=== PATIENT | male | born 1950 | race Caucasian/White ===

== ENCOUNTER → 2017-03-18 | Outpatient (CLI) | payer MEDICARE, BC ==
[2014-09-12 15:22] VITALS: BP 143/90
[~2017-03-18] MED LIST: ADVIL200 MG PO; NORCO 325 MG-101 TA1 PO; PARAFON FORTE500 MG PO; PROSCAR PO
[2017-03-18 09:04] LABS: EOS # 0.2 (0.04-0.40); EOS % 3.4 % (0.0-4.0); HEMATOCRIT 51.4 % (42.0-52.0); HEMOGLOBIN 17.3 g/dL (13.5-18.0); LYMPH# 1.5 (1.50-4.00); MEAN CELL VOLUME 89 fl (78-100); MEAN CORPUSCULAR HEMOGLOBIN 30 pg (27-31); MEAN CORPUSCULAR HGB CONC 34 g/dL (33-37); MEAN PLATELET VOLUME 8.8 fl (7.4-10.4); MONO # 0.5 (0.20-0.80); NEU # 3.9 (1.40-6.50); PLATELET COUNT 200 K/mm3 (130-400); RED BLOOD COUNT 5.76 M/mm3 (4.20-5.60); RED CELL DISTRIBUTION WIDTH 13.3 % (11.5-14.5); WHITE BLOOD COUNT 6.2 K/mm3 (4.8-10.8)
[2017-03-18 09:18] LABS: ALBUMIN 4.1 g/dL (3.5-5.0); CALCIUM 8.9 mg/dL (8.4-10.2); POTASSIUM 4.4 mmol/L (3.6-5.0); TOTAL BILIRUBIN 0.7 mg/dL (0.2-1.3); TOTAL PROTEIN 7.1 g/dL (6.3-8.2)
[2017-03-18 10:21] LABS: ERYTHROCYTE SEDIMENTATION RATE 5 mm/hr (0-20)
[2017-03-19 00:10] LABS: TESTOSTERONE 639 ng/dL (221-716)
== END ==
LOC: LAB 08:27
PROVIDERS: Internal Medicine
DX: E78.5 Hyperlipidemia, unspecified (principal); Z12.5 Encounter for screening for malignant neoplasm of prostate; G43.909 Migraine, unspecified, not intractable, without status migrainosus; G89.29 Other chronic pain; M54.12 Radiculopathy, cervical region; N52.9 Male erectile dysfunction, unspecified

== ENCOUNTER → 2017-03-21 | Outpatient (CLI) | payer MEDICARE, BC ==
[2014-09-12 15:22] VITALS: BP 143/90
== END ==
LOC: LAB 09:27
DX: Z12.11 Encounter for screening for malignant neoplasm of colon (principal)

== ENCOUNTER → 2017-03-26 | Outpatient (CLI) | payer MEDICARE, BC ==
[~2017-03-26] VITALS: Ht 154.9 cm; Wt 93.2 kg
[2017-03-26 09:49] VITALS: BP 150/88
== END ==
LOC: AMSURD 09:21
DX: I49.3 Ventricular premature depolarization (principal)

== ENCOUNTER → 2018-05-09 | Outpatient (CLI) | payer MEDICARE, BC ==
[2017-03-26 09:49] VITALS: BP 150/88
[2018-05-09 10:27] LABS: EOS # 0.2 (0.04-0.40); EOS % 2.6 % (0.0-4.0); HEMATOCRIT 48.2 % (42.0-52.0); HEMOGLOBIN 16.5 g/dL (13.5-18.0); LYMPH# 1.4 (1.50-4.00); MEAN CELL VOLUME 88 fl (78-100); MEAN CORPUSCULAR HEMOGLOBIN 30 pg (27-31); MEAN CORPUSCULAR HGB CONC 34 g/dL (33-37); MEAN PLATELET VOLUME 9.1 fl (7.4-10.4); MONO # 0.5 (0.20-0.80); PLATELET COUNT 214 K/mm3 (130-400); RED BLOOD COUNT 5.47 M/mm3 (4.20-5.60); RED CELL DISTRIBUTION WIDTH 12.6 % (11.5-14.5); WHITE BLOOD COUNT 6.1 K/mm3 (4.8-10.8)
[2018-05-09 10:34] LABS: ALBUMIN 4.5 g/dL (3.5-5.0); CALCIUM 9.3 mg/dL (8.4-10.2); POTASSIUM 4.4 mmol/L (3.6-5.0); TOTAL BILIRUBIN 0.8 mg/dL (0.2-1.3); TOTAL PROTEIN 7.4 g/dL (6.3-8.2)
[2018-05-09 10:46] LABS: PH-URINE 7.5 (5.0 - 8.0); URINE APPEARANCE CLEAR; URINE BILIRUBIN NEGATIVE (NEGATIVE); URINE BLOOD TRACE (NEGATIVE); URINE COLOR YELLOW; URINE GLUCOSE NEGATIVE (NEGATIVE); URINE KETONE NEGATIVE (NEGATIVE); URINE LEUKOCYTE ESTERASE NEGATIVE (NEGATIVE); URINE NITRATE NEGATIVE (NEGATIVE); URINE PROTEIN(semi-quant) NEGATIVE (NEGATIVE); URINE UROBILINOGEN NORMAL (NORMAL); URINE WBC 0-1 /hpf (0-3)
[2018-05-09 12:00] LABS: ERYTHROCYTE SEDIMENTATION RATE 8 mm/hr (0-20)
== END ==
LOC: LAB 09:53
PROVIDERS: Internal Medicine
DX: Z12.11 Encounter for screening for malignant neoplasm of colon (principal); Z12.5 Encounter for screening for malignant neoplasm of prostate; G43.909 Migraine, unspecified, not intractable, without status migrainosus; E78.5 Hyperlipidemia, unspecified; E03.8 Other specified hypothyroidism; M54.12 Radiculopathy, cervical region; R35.1 Nocturia

== ENCOUNTER → 2018-05-12 | Outpatient (CLI) | payer MEDICARE, BC ==
[2017-03-26 09:49] VITALS: BP 150/88
== END ==
LOC: LAB 10:29
DX: Z12.11 Encounter for screening for malignant neoplasm of colon (principal); G43.909 Migraine, unspecified, not intractable, without status migrainosus

== ENCOUNTER → 2018-06-09 | Outpatient (CLI) | payer MEDICARE, BC ==
[2017-03-26 09:49] VITALS: BP 150/88
[2018-06-09 10:12] LABS: URINE APPEARANCE CLEAR; URINE BILIRUBIN NEGATIVE (NEGATIVE); URINE COLOR YELLOW; URINE GLUCOSE NEGATIVE (NEGATIVE); URINE KETONE NEGATIVE (NEGATIVE); URINE PROTEIN(semi-quant) TRACE mg/dL (NEGATIVE); URINE UROBILINOGEN NORMAL (NORMAL)
[2018-06-09 10:13] LABS: URINE BLOOD NEGATIVE (NEGATIVE); URINE LEUKOCYTE ESTERASE NEGATIVE (NEGATIVE); URINE MUCUS PRESENT (NOT PRESENT); URINE NITRATE NEGATIVE (NEGATIVE); URINE WBC 0-1 /hpf (0-3)
== END ==
LOC: LAB 08:52
PROVIDERS: Internal Medicine
DX: R31.9 Hematuria, unspecified (principal)

== ENCOUNTER → 2018-07-07 | Outpatient (CLI) | payer MEDICARE, BC ==
[2017-03-26 09:49] VITALS: BP 150/88
== END ==
LOC: RAD 09:50
DX: M47.814 Spondylosis without myelopathy or radiculopathy, thoracic region (principal); J40 Bronchitis, not specified as acute or chronic

== ENCOUNTER → 2020-01-07 | Outpatient (CLI) | payer MEDICARE, BC ==
[2017-03-26 09:49] VITALS: BP 150/88
[2020-01-07 10:47] LABS: EOS # 0.1 (0.04-0.40); EOS % 2.6 % (0.0-4.0); HEMATOCRIT 49.3 % (42.0-52.0); HEMOGLOBIN 16.8 g/dL (13.5-18.0); LYMPH# 1.2 (1.50-4.00); MEAN CELL VOLUME 87 fl (78-100); MEAN CORPUSCULAR HEMOGLOBIN 30 pg (27-31); MEAN CORPUSCULAR HGB CONC 34 g/dL (33-37); MEAN PLATELET VOLUME 8.8 fl (7.4-10.4); MONO # 0.4 (0.20-0.80); NEU # 3.6 (1.40-6.50); PLATELET COUNT 181 K/mm3 (130-400); RED BLOOD COUNT 5.66 M/mm3 (4.20-5.60); RED CELL DISTRIBUTION WIDTH 12.9 % (11.5-14.5); WHITE BLOOD COUNT 5.4 K/mm3 (4.8-10.8)
[2020-01-07 11:03] LABS: ALBUMIN 4.2 g/dL (3.4-4.8); POTASSIUM 4.5 mmol/L (3.5-5.1)
[2020-01-07 11:05] LABS: TOTAL PROTEIN 6.7 g/dL (6.2-8.1)
[2020-01-07 11:07] LABS: TOTAL BILIRUBIN 0.6 mg/dL (0.2-1.2)
[2020-01-07 11:12] LABS: MAGNESIUM 1.96 mg/dL (1.60-2.60)
[2020-01-07 11:40] LABS: ERYTHROCYTE SEDIMENTATION RATE 3 mm/hr (0-20)
== END ==
LOC: LAB 10:11
PROVIDERS: Internal Medicine
DX: Z12.5 Encounter for screening for malignant neoplasm of prostate (principal); G43.909 Migraine, unspecified, not intractable, without status migrainosus; E78.5 Hyperlipidemia, unspecified; K90.9 Intestinal malabsorption, unspecified; G44.89 Other headache syndrome

== ENCOUNTER → 2020-11-10 | Outpatient (CLI) | payer MEDICARE, BC ==
[2020-11-10 12:40] LABS: BASO # 0.03 (0.02-0.10); EOS # 0.15 (0.04-0.40); EOS % 2.4 % (0.0-4.0); HEMATOCRIT 50.4 % (42.0-52.0); LYMPH# 1.31 (1.50-4.00); MEAN CELL VOLUME 90 fl (78-100); MEAN CORPUSCULAR HEMOGLOBIN 30 pg (27-31); MEAN CORPUSCULAR HGB CONC 34 g/dL (33-37); MEAN PLATELET VOLUME 8.8 fl (7.4-10.4); MONO # 0.46 (0.20-0.80); NEU # 4.24 (1.40-6.50); PLATELET COUNT 205 K/mm3 (130-400); RED BLOOD COUNT 5.61 M/mm3 (4.20-5.60); RED CELL DISTRIBUTION WIDTH 12.4 % (11.5-14.5); WHITE BLOOD COUNT 6.2 K/mm3 (4.8-10.8)
[2020-11-10 13:24] LABS: ALBUMIN 4.3 g/dL (3.4-4.8); POTASSIUM 5.3 mmol/L (3.5-5.1)
[2020-11-10 13:25] LABS: CALCIUM 9.6 mg/dL (8.3-10.5)
[2020-11-10 13:27] LABS: TOTAL PROTEIN 7.3 g/dL (6.2-8.1)
[2020-11-10 13:29] LABS: TOTAL BILIRUBIN 0.6 mg/dL (0.2-1.2)
[2020-11-10 13:31] LABS: D-DIMER 1.94 mg/L FEU (0.15-0.50)
== END ==
LOC: LAB 11:59
PROVIDERS: Internal Medicine
DX: E78.5 Hyperlipidemia, unspecified (principal); K90.9 Intestinal malabsorption, unspecified; R06.00 Dyspnea, unspecified

== ENCOUNTER → 2020-11-11 | Outpatient (CLI) | payer MEDICARE, BC | LOC: RAD 07:55 | DX: I71.4 Abdominal aortic aneurysm, without rupture (principal); R79.1 Abnormal coagulation profile; R91.8 Other nonspecific abnormal finding of lung field | CPT/HCPCS: Q9967 ==

== ENCOUNTER → 2020-11-16 | Outpatient (CLI) | payer MEDICARE, BC | LOC: VAS 12:46 → RAD 13:00 | DX: R06.00 Dyspnea, unspecified (principal) ==

== ENCOUNTER 2020-11-17 20:59 | Emergency (ER) | payer MEDICARE, BC ==
[2020-11-17 22:13] LABS: BASO # 0.03 (0.02-0.10); EOS # 0.11 (0.04-0.40); EOS % 1.9 % (0.0-4.0); HEMATOCRIT 45.9 % (42.0-52.0); HEMOGLOBIN 15.8 g/dL (13.5-18.0); LYMPH# 1.18 (1.50-4.00); MEAN CELL VOLUME 90 fl (78-100); MEAN CORPUSCULAR HEMOGLOBIN 31 pg (27-31); MEAN CORPUSCULAR HGB CONC 34 g/dL (33-37); MEAN PLATELET VOLUME 8.8 fl (7.4-10.4); MONO # 0.38 (0.20-0.80); PLATELET COUNT 175 K/mm3 (130-400); RED BLOOD COUNT 5.13 M/mm3 (4.20-5.60); RED CELL DISTRIBUTION WIDTH 12.1 % (11.5-14.5); WHITE BLOOD COUNT 5.8 K/mm3 (4.8-10.8)
[2020-11-17 22:20] LABS: POTASSIUM 4.3 mmol/L (3.5-5.1); SODIUM 137 mmol/L (136-145)
[2020-11-17 22:21] LABS: CALCIUM 9.1 mg/dL (8.3-10.5)
[2020-11-17 22:22] LABS: GLUCOSE 101 mg/dL (75-110)
[2020-11-17 22:23] LABS: TOTAL PROTEIN 6.8 g/dL (6.2-8.1)
[2020-11-17 22:24] LABS: CARBON DIOXIDE 23 mmol/L (23-31); TOTAL BILIRUBIN 0.7 mg/dL (0.2-1.2)
[2020-11-17 22:28] LABS: AST-SGOT 11 U/L (5-34)
[2020-11-17 22:29] LABS: ALT/SGPT 15 U/L (0-55)
[2020-11-17 22:37] LABS: TROPONIN-I < 0.03 ng/mL (<0.030)
[2020-11-17 23:11] LABS: URINE WBC 0 /hpf (0-3)
[2020-11-17 23:38] LABS: URINE APPEARANCE CLEAR; URINE BILIRUBIN NEGATIVE (NEGATIVE); URINE BLOOD NEGATIVE (NEGATIVE); URINE COLOR YELLOW; URINE GLUCOSE NEGATIVE (NEGATIVE); URINE KETONE NEGATIVE (NEGATIVE); URINE LEUKOCYTE ESTERASE NEGATIVE (NEGATIVE); URINE NITRATE NEGATIVE (NEGATIVE); URINE PROTEIN(semi-quant) NEGATIVE (NEGATIVE); URINE UROBILINOGEN NORMAL (NORMAL)
[2020-11-18 00:44] VITALS: BP 126/81
== END 2020-11-18 00:45 | disposition left against medical advice (07) ==
LOC: ED 20:59
PROVIDERS: Nurse Practitioner Family
DX: R07.89 Other chest pain (principal); I16.0 Hypertensive urgency; T73.3XXA Exhaustion due to excessive exertion, initial encounter; F43.9 Reaction to severe stress, unspecified; J44.9 Chronic obstructive pulmonary disease, unspecified; G89.29 Other chronic pain; M54.9 Dorsalgia, unspecified; F17.210 Nicotine dependence, cigarettes, uncomplicated; Z79.1 Long term (current) use of non-steroidal anti-inflammatories (NSAID)
CPT/HCPCS: J2405; J7030

== ENCOUNTER → 2020-11-25 | Outpatient (CLI) | payer MEDICARE, BC | LOC: CARDLAB 11-17 16:02 → CARDREHAB 07:55 | DX: R06.00 Dyspnea, unspecified (principal) | CPT/HCPCS: A9500 ==

== ENCOUNTER → 2020-12-06 | Outpatient (CLI) | payer MEDICARE, BC ==
[2020-12-06 11:09] LABS: POTASSIUM 4.2 mmol/L (3.5-5.1)
[2020-12-07 07:35] LABS: FACTOR V LEIDEN MUTATION B Negative (Negative)
== END ==
LOC: RAD 09:37
PROVIDERS: Internal Medicine
DX: I71.4 Abdominal aortic aneurysm, without rupture (principal); R06.00 Dyspnea, unspecified; R79.1 Abnormal coagulation profile; I10 Essential (primary) hypertension; Z83.2 Family history of diseases of the blood and blood-forming organs and certain disorders involving the immune mechanism
CPT/HCPCS: Q9967

== ENCOUNTER → 2021-01-26 | Outpatient (CLI) | payer MEDICARE, BC ==
[2021-01-26 08:18] LABS: BASO # 0.03 K/mm3 (0.02-0.10); EOS % 3.6 % (0.0-4.0); HEMATOCRIT 47.1 % (42.0-52.0); HEMOGLOBIN 15.9 g/dL (13.5-18.0); LYMPH# 1.71 K/mm3 (1.50-4.00); MEAN CELL VOLUME 90 fl (78-100); MEAN CORPUSCULAR HEMOGLOBIN 30 pg (27-31); MEAN CORPUSCULAR HGB CONC 34 g/dL (33-37); MEAN PLATELET VOLUME 8.5 fl (7.4-10.4); MONO # 0.42 K/mm3 (0.20-0.80); NEU # 3.21 K/mm3 (1.40-6.50); PLATELET COUNT 177 K/mm3 (130-400); RED BLOOD COUNT 5.25 M/mm3 (4.20-5.60); RED CELL DISTRIBUTION WIDTH 12.5 % (11.5-14.5); WHITE BLOOD COUNT 5.6 K/mm3 (4.8-10.8)
[2021-01-26 08:29] LABS: POTASSIUM 4.3 mmol/L (3.5-5.1)
[2021-01-26 08:30] LABS: CALCIUM 8.7 mg/dL (8.3-10.5)
[2021-01-26 08:38] LABS: PROTHROMBIN TIME 10.9 SECONDS (9.0-12.0)
== END ==
LOC: LAB 08:04
DX: I71.4 Abdominal aortic aneurysm, without rupture (principal)

== ENCOUNTER → 2021-01-27 | Outpatient (CLI) | payer MEDICARE, BC | LOC: LAB 07:40 | DX: I71.4 Abdominal aortic aneurysm, without rupture (principal); Z20.822 Contact with and (suspected) exposure to COVID-19 ==

== ENCOUNTER → 2021-08-08 | Outpatient (CLI) | payer MEDICARE, BC ==
[2021-08-08 17:27] LABS: BASO # 0.02 K/mm3 (0.02-0.10); EOS # 0.27 K/mm3 (0.04-0.40); EOS % 4.1 % (0.0-4.0); HEMATOCRIT 48.5 % (42.0-52.0); HEMOGLOBIN 16.6 g/dL (13.5-18.0); LYMPH# 1.59 K/mm3 (1.50-4.00); MEAN CELL VOLUME 89 fl (78-100); MEAN CORPUSCULAR HEMOGLOBIN 31 pg (27-31); MEAN CORPUSCULAR HGB CONC 34 g/dL (33-37); MEAN PLATELET VOLUME 8.5 fl (7.4-10.4); MONO # 0.54 K/mm3 (0.20-0.80); NEU # 4.13 K/mm3 (1.40-6.50); PLATELET COUNT 180 K/mm3 (130-400); RED BLOOD COUNT 5.45 M/mm3 (4.20-5.60); RED CELL DISTRIBUTION WIDTH 12.3 % (11.5-14.5); WHITE BLOOD COUNT 6.6 K/mm3 (4.8-10.8)
[2021-08-08 17:35] LABS: ALBUMIN 4.3 g/dL (3.4-4.8); POTASSIUM 4.3 mmol/L (3.5-5.1)
[2021-08-08 17:36] LABS: CALCIUM 9.2 mg/dL (8.3-10.5)
[2021-08-08 17:38] LABS: TOTAL PROTEIN 6.9 g/dL (6.2-8.1)
[2021-08-08 17:39] LABS: TOTAL BILIRUBIN 0.7 mg/dL (0.2-1.2)
== END ==
LOC: LAB 17:18
PROVIDERS: Internal Medicine
DX: I10 Essential (primary) hypertension (principal)

== ENCOUNTER → 2021-09-22 | Outpatient (CLI) | payer MEDICARE, BC ==
[2021-09-22 17:44] LABS: BASO # 0.04 K/mm3 (0.02-0.10); EOS # 0.33 K/mm3 (0.04-0.40); EOS % 5.4 % (0.0-4.0); HEMATOCRIT 46.3 % (42.0-52.0); HEMOGLOBIN 15.7 g/dL (13.5-18.0); LYMPH# 2.09 K/mm3 (1.50-4.00); MEAN CELL VOLUME 91 fl (78-100); MEAN CORPUSCULAR HEMOGLOBIN 31 pg (27-31); MEAN CORPUSCULAR HGB CONC 34 g/dL (33-37); MEAN PLATELET VOLUME 8.8 fl (7.4-10.4); MONO # 0.45 K/mm3 (0.20-0.80); NEU # 3.24 K/mm3 (1.40-6.50); PLATELET COUNT 170 K/mm3 (130-400); RED CELL DISTRIBUTION WIDTH 12.3 % (11.5-14.5); WHITE BLOOD COUNT 6.2 K/mm3 (4.8-10.8)
[2021-09-22 17:54] LABS: POTASSIUM 4.2 mmol/L (3.5-5.1)
[2021-09-22 17:55] LABS: CALCIUM 8.8 mg/dL (8.3-10.5)
[2021-09-22 17:56] LABS: TOTAL PROTEIN 6.1 g/dL (6.2-8.1)
[2021-09-22 17:58] LABS: TOTAL BILIRUBIN 0.6 mg/dL (0.2-1.2)
[2021-09-22 18:03] LABS: MAGNESIUM 2.23 mg/dL (1.60-2.60)
[2021-09-22 18:11] LABS: URINE APPEARANCE CLEAR; URINE BILIRUBIN NEGATIVE (NEGATIVE); URINE BLOOD NEGATIVE (NEGATIVE); URINE COLOR YELLOW; URINE GLUCOSE NEGATIVE (NEGATIVE); URINE KETONE NEGATIVE (NEGATIVE); URINE LEUKOCYTE ESTERASE NEGATIVE (NEGATIVE); URINE NITRATE NEGATIVE (NEGATIVE); URINE PROTEIN(semi-quant) NEGATIVE (NEGATIVE); URINE UROBILINOGEN NORMAL (NORMAL); URINE WBC 0-1 /hpf (0-3)
== END ==
LOC: AMSURD 16:36
PROVIDERS: Internal Medicine
DX: Z01.818 Encounter for other preprocedural examination (principal); Z12.5 Encounter for screening for malignant neoplasm of prostate; E78.5 Hyperlipidemia, unspecified; K90.9 Intestinal malabsorption, unspecified

== ENCOUNTER → 2021-10-11 | Day surgery (SDC) | payer MEDICARE, BC | LOC: MSO 10:36 | DX: H25.812 Combined forms of age-related cataract, left eye (principal); F17.210 Nicotine dependence, cigarettes, uncomplicated | CPT/HCPCS: 00142; J0171; J2250; V2632 ==

== ENCOUNTER → 2022-03-06 | Outpatient (CLI) | payer MEDICARE, BC | LOC: LAB 16:30 | DX: U07.1 COVID-19 (principal) ==

== ENCOUNTER → 2022-11-19 | Outpatient (CLI) | payer MEDICARE, BC ==
[~2022-11-19] MED LIST changes: +COZAAR100 MG PO; +LOW DOSE ASPIRI81 M1 PO; +METOPROLOL SUCC25 M1 PO; +ROSUVASTATIN CAL5 MG PO; +RT ALBUTEROL CC18 GM IH; +SYMBICORT1 AE2 IH; +TYLENOL EXTRA500 M2 PO
== END ==
LOC: LAB 10:55
DX: Z00.00 Encounter for general adult medical examination without abnormal findings (principal); Z12.11 Encounter for screening for malignant neoplasm of colon; Z12.5 Encounter for screening for malignant neoplasm of prostate; Z23 Encounter for immunization; R55 Syncope and collapse; E86.0 Dehydration; J43.9 Emphysema, unspecified; I10 Essential (primary) hypertension; I71.40 Abdominal aortic aneurysm, without rupture, unspecified; E78.5 Hyperlipidemia, unspecified; J44.9 Chronic obstructive pulmonary disease, unspecified; D12.6 Benign neoplasm of colon, unspecified; M54.12 Radiculopathy, cervical region; G44.89 Other headache syndrome; G43.909 Migraine, unspecified, not intractable, without status migrainosus; M50.20 Other cervical disc displacement, unspecified cervical region; N40.0 Benign prostatic hyperplasia without lower urinary tract symptoms; F17.210 Nicotine dependence, cigarettes, uncomplicated; K90.9 Intestinal malabsorption, unspecified; Z28.39 Other underimmunization status; S51.811A Laceration without foreign body of right forearm, initial encounter

== ENCOUNTER → 2023-10-29 | Outpatient (CLI) | payer MEDICARE, BC ==
[2023-10-29 11:31] LABS: BASO # 0.01 K/mm3 (0.02-0.10); EOS # 0.17 K/mm3 (0.04-0.40); HEMATOCRIT 45.2 % (42.0-52.0); HEMOGLOBIN 15.8 g/dL (13.5-18.0); LYMPH# 1.28 K/mm3 (1.50-4.00); MEAN CELL VOLUME 89 fl (78-100); MEAN CORPUSCULAR HEMOGLOBIN 31 pg (27-31); MEAN CORPUSCULAR HGB CONC 35 g/dL (33-37); MEAN PLATELET VOLUME 8.4 fl (7.4-10.4); MONO # 0.39 K/mm3 (0.20-0.80); NEU # 3.89 K/mm3 (1.40-6.50); PLATELET COUNT 151 K/mm3 (130-400); RED BLOOD COUNT 5.07 M/mm3 (4.20-5.60); RED CELL DISTRIBUTION WIDTH 12.3 % (11.5-14.5); WHITE BLOOD COUNT 5.8 K/mm3 (4.8-10.8)
[2023-10-29 11:42] LABS: CALCIUM 9.1 mg/dL (8.3-10.5)
[2023-10-29 11:43] LABS: TOTAL PROTEIN 6.4 g/dL (6.2-8.1)
[2023-10-29 11:45] LABS: TOTAL BILIRUBIN 0.9 mg/dL (0.2-1.2)
[2023-10-29 11:50] LABS: MAGNESIUM 2.08 mg/dL (1.60-2.60)
[2023-10-29 22:58] LABS: TESTOSTERONE 774 ng/dL (221-716)
== END ==
LOC: LAB 11:18
PROVIDERS: Internal Medicine
DX: Z12.5 Encounter for screening for malignant neoplasm of prostate (principal); Z12.11 Encounter for screening for malignant neoplasm of colon; I10 Essential (primary) hypertension; E78.5 Hyperlipidemia, unspecified; K90.9 Intestinal malabsorption, unspecified; R73.9 Hyperglycemia, unspecified; F52.21 Male erectile disorder

== ENCOUNTER 2024-01-12 12:39 | Emergency (ER) | payer MEDICARE, BC ==
[~2024-01-12] VITALS: Ht 182.9 cm; Wt 93.2 kg
[2024-01-12 13:16] LABS: BASO # 0.02 K/mm3 (0.02-0.10); EOS # 0.08 K/mm3 (0.04-0.40); EOS % 1.1 % (0.0-4.0); HEMATOCRIT 47.5 % (42.0-52.0); HEMOGLOBIN 16.9 g/dL (13.5-18.0); LYMPH# 0.97 K/mm3 (1.50-4.00); MEAN CELL VOLUME 88 fl (78-100); MEAN CORPUSCULAR HEMOGLOBIN 31 pg (27-31); MEAN CORPUSCULAR HGB CONC 36 g/dL (33-37); MEAN PLATELET VOLUME 8.6 fl (7.4-10.4); MONO # 0.48 K/mm3 (0.20-0.80); NEU # 5.91 K/mm3 (1.40-6.50); PLATELET COUNT 143 K/mm3 (130-400); RED BLOOD COUNT 5.39 M/mm3 (4.20-5.60); RED CELL DISTRIBUTION WIDTH 12.1 % (11.5-14.5); WHITE BLOOD COUNT 7.5 K/mm3 (4.8-10.8)
[2024-01-12 13:34] LABS: ALBUMIN 4.2 g/dL (3.4-4.8)
[2024-01-12 13:36] LABS: CALCIUM 9.1 mg/dL (8.3-10.5)
[2024-01-12 13:37] LABS: TOTAL PROTEIN 6.6 g/dL (6.2-8.1)
[2024-01-12 13:39] LABS: TOTAL BILIRUBIN 1.3 mg/dL (0.2-1.2)
[2024-01-12 13:52] LABS: TROPONIN-I 0.069 ng/mL (0.00-0.033)
[2024-01-12 13:59] LABS: D-DIMER 4.72 mg/L FEU (0.15-0.50)
[2024-01-12] MEDS ORDERED: Iohexol 350 - 100 ML VIAL IV ONE (15:09)
[2024-01-12] MEDS ORDERED: EPINEPHrine 0.3 MG/0.3 ML Auto Injector IM ONE (17:30)
[2024-01-12] MEDS ORDERED: Ondansetron 4 MG/2 ML VIAL IV ONE ×2 (17:30→19:30)
[2024-01-12] MEDS ORDERED: [UNRECOGNIZED DRUG - OTHER] IV ONE (18:45)
[2024-01-12] MEDS ORDERED: DEXTROSE IV ONE (18:45)
[2024-01-12] MEDS ORDERED: Heparin 5,000 UNITS/ML 1 ML VIAL IV PRN (18:45)
[2024-01-12 19:39] LABS: PARTIAL THROMBOPLASTIN TIME 24.5 SECONDS (21.0-32.0); PROTHROMBIN TIME 11.6 SECONDS (9.0-12.0)
[2024-01-12 20:30] VITALS: BP 104/64
== END 2024-01-12 20:45 | disposition short-term general hospital (02) ==
LOC: ED 12:39
PROVIDERS: Physician Assistant
DX: I21.4 Non-ST elevation (NSTEMI) myocardial infarction (principal); R79.1 Abnormal coagulation profile; R79.89 Other specified abnormal findings of blood chemistry; E87.1 Hypo-osmolality and hyponatremia; E87.6 Hypokalemia; Z95.5 Presence of coronary angioplasty implant and graft; Z79.82 Long term (current) use of aspirin
CPT/HCPCS: J1644; Q9967

== ENCOUNTER 2024-02-06 13:53 | Outpatient (RCR) | payer MEDICARE, BC | END 2024-02-18 | disposition home or self-care (01) | LOC: CARDREHAB | DX: Z48.812 Encounter for surgical aftercare following surgery on the circulatory system (principal); I21.4 Non-ST elevation (NSTEMI) myocardial infarction; Z98.61 Coronary angioplasty status ==

== ENCOUNTER → 2024-02-13 | Outpatient (CLI) | payer MEDICARE, BC ==
[2024-02-13 11:06] LABS: CALCIUM 8.7 mg/dL (8.3-10.5)
== END ==
LOC: LAB 10:34
PROVIDERS: Internal Medicine
DX: I25.10 Atherosclerotic heart disease of native coronary artery without angina pectoris (principal); I10 Essential (primary) hypertension; I25.5 Ischemic cardiomyopathy

== ENCOUNTER 2024-02-20 07:57 | Outpatient (RCR) | payer MEDICARE, BC | END 2024-03-20 | disposition home or self-care (01) | LOC: CARDREHAB | DX: Z95.5 Presence of coronary angioplasty implant and graft (principal); Z48.812 Encounter for surgical aftercare following surgery on the circulatory system; I25.2 Old myocardial infarction ==

== ENCOUNTER → 2024-03-05 | Outpatient (CLI) | payer MEDICARE, BC ==
[2024-03-05 12:08] LABS: BASO # 0.02 K/mm3 (0.02-0.10); EOS % 4.1 % (0.0-4.0); HEMATOCRIT 42.5 % (42.0-52.0); HEMOGLOBIN 14.2 g/dL (13.5-18.0); LYMPH# 1.06 K/mm3 (1.50-4.00); MEAN CELL VOLUME 92 fl (78-100); MEAN CORPUSCULAR HEMOGLOBIN 31 pg (27-31); MEAN CORPUSCULAR HGB CONC 33 g/dL (33-37); MEAN PLATELET VOLUME 8.9 fl (7.4-10.4); MONO # 0.34 K/mm3 (0.20-0.80); NEU # 3.23 K/mm3 (1.40-6.50); PLATELET COUNT 128 K/mm3 (130-400); RED BLOOD COUNT 4.63 M/mm3 (4.20-5.60); RED CELL DISTRIBUTION WIDTH 12.9 % (11.5-14.5); WHITE BLOOD COUNT 4.9 K/mm3 (4.8-10.8)
[2024-03-05 12:18] LABS: ALBUMIN 3.8 g/dL (3.4-4.8)
[2024-03-05 12:19] LABS: CALCIUM 8.7 mg/dL (8.3-10.5)
[2024-03-05 12:22] LABS: TOTAL BILIRUBIN 0.7 mg/dL (0.2-1.2)
[2024-03-05 12:27] LABS: MAGNESIUM 1.94 mg/dL (1.60-2.60)
== END ==
LOC: LAB 11:53
PROVIDERS: Internal Medicine
DX: I10 Essential (primary) hypertension (principal); E78.5 Hyperlipidemia, unspecified

== ENCOUNTER 2024-03-24 08:00 | Outpatient (RCR) | payer MEDICARE, BC | END 2024-04-17 | disposition home or self-care (01) | LOC: CARDREHAB | DX: Z48.812 Encounter for surgical aftercare following surgery on the circulatory system (principal); Z98.61 Coronary angioplasty status; I25.2 Old myocardial infarction ==

== ENCOUNTER → 2024-04-02 | Outpatient (CLI) | payer MEDICARE, BC ==
[~2024-04-02] MED LIST changes: +Iohexol 300 - 100 ML VIAL IV ONE; +NS 100 ML IV SCH
[2024-04-02 12:32] LABS: BASO # 0.01 K/mm3 (0.02-0.10); EOS # 0.15 K/mm3 (0.04-0.40); EOS % 3.1 % (0.0-4.0); HEMATOCRIT 45.9 % (42.0-52.0); HEMOGLOBIN 15.2 g/dL (13.5-18.0); LYMPH# 0.96 K/mm3 (1.50-4.00); MEAN CELL VOLUME 91 fl (78-100); MEAN CORPUSCULAR HEMOGLOBIN 30 pg (27-31); MEAN CORPUSCULAR HGB CONC 33 g/dL (33-37); MEAN PLATELET VOLUME 8.7 fl (7.4-10.4); MONO # 0.32 K/mm3 (0.20-0.80); NEU # 3.45 K/mm3 (1.40-6.50); PLATELET COUNT 138 K/mm3 (130-400); RED BLOOD COUNT 5.04 M/mm3 (4.20-5.60); RED CELL DISTRIBUTION WIDTH 12.3 % (11.5-14.5); WHITE BLOOD COUNT 4.9 K/mm3 (4.8-10.8)
[2024-04-02 12:37] LABS: ALBUMIN 4.1 g/dL (3.4-4.8); SODIUM 138 mmol/L (136-145)
[2024-04-02 12:38] LABS: CALCIUM 9.2 mg/dL (8.3-10.5)
[2024-04-02 12:39] LABS: GLUCOSE 109 mg/dL (75-110); TOTAL PROTEIN 6.8 g/dL (6.2-8.1)
[2024-04-02 12:41] LABS: CARBON DIOXIDE 23 mmol/L (23-31); TOTAL BILIRUBIN 0.6 mg/dL (0.2-1.2)
[2024-04-02 12:45] LABS: AST-SGOT 12 U/L (5-34)
[2024-04-02 12:46] LABS: ALT/SGPT 14 U/L (0-55)
[2024-04-02 13:57] LABS: URINE APPEARANCE CLEAR (CLEAR); URINE COLOR YELLOW (YELLOW)
[2024-04-02 13:58] LABS: URINE BILIRUBIN NEGATIVE (NEGATIVE); URINE BLOOD NEGATIVE (NEGATIVE); URINE GLUCOSE NEGATIVE (NEGATIVE); URINE KETONE NEGATIVE (NEGATIVE); URINE LEUKOCYTE ESTERASE NEGATIVE (NEGATIVE); URINE MUCUS PRESENT (NOT PRESENT); URINE NITRATE NEGATIVE (NEGATIVE); URINE PROTEIN(semi-quant) 1+ (NEGATIVE); URINE WBC 0-1 /hpf (0-3)
[2024-04-06 14:09] LABS: KAPPA LAMBDA RATIO 1.54 (())
[2024-04-06 15:12] LABS: A/G RATIO (PEP) 1.5 (0.7-1.7); BETA GLOBULINS (PEP) 0.8 g/dL (0.7-1.3)
== END ==
LOC: LAB 12:05
PROVIDERS: Internal Medicine
DX: K90.9 Intestinal malabsorption, unspecified (principal); R63.4 Abnormal weight loss
CPT/HCPCS: Q9967

== ENCOUNTER → 2024-04-13 | Outpatient (CLI) | payer MEDICARE, BC ==
[~2024-04-13] MED LIST changes: -Iohexol 300 - 100 ML VIAL IV ONE; -NS 100 ML IV SCH
== END ==
LOC: LAB 10:00
DX: R63.4 Abnormal weight loss (principal)